=== PATIENT | female | born 1985 | race Caucasian/White ===

== ENCOUNTER → 2022-04-03 | Emergency (ER) | payer OTHER | END | disposition home or self-care (01) | LOC: ER 17:21 | DX: S41.112A Laceration without foreign body of left upper arm, initial encounter (principal); S81.811A Laceration without foreign body, right lower leg, initial encounter; W55.01XA Bitten by cat, initial encounter; Y93.9 Activity, unspecified; Y92.019 Unspecified place in single-family (private) house as the place of occurrence of the external cause; Y99.9 Unspecified external cause status ==

== ENCOUNTER 2022-04-11 12:23 | Emergency (ER) | payer OTHER ==
[~2022-04-11] VITALS: Ht 157.5 cm; Wt 95.3 kg
[2022-04-11] MEDS ORDERED: LEVO-T25 MCG PO (12:50)
[2022-04-11] MEDS ORDERED: FLAGYL375 MG (12:51)
== END 2022-04-11 14:53 | disposition home or self-care (01) ==
LOC: ER 12:23
DX: S50.872A Other superficial bite of left forearm, initial encounter (principal); S80.871A Other superficial bite, right lower leg, initial encounter; W55.01XA Bitten by cat, initial encounter; Y93.9 Activity, unspecified; Y92.9 Unspecified place or not applicable; Y99.9 Unspecified external cause status

== ENCOUNTER 2025-05-03 18:51 | Emergency (ER) | payer OTHER ==
[~2025-05-03] VITALS: Ht 157.5 cm; Wt 97.5 kg
[~2025-05-03 18:51] MED LIST: FLAGYL375 MG; LEVO-T25 MCG PO; LEVOTHYROXINE25 MCG PO
[2025-05-03 19:22] VITALS: BP 146/83; O2SAT 99
== END 2025-05-04 01:56 | disposition home or self-care (01) ==
LOC: ER 18:51 → EDBD 18:51 → ER 19:14
DX: R42 Dizziness and giddiness (principal); R51.9 Headache, unspecified

== ENCOUNTER 2025-07-27 20:10 | Emergency (ER) | payer OTHER ==
[~2025-07-27] VITALS: Ht 160 cm; Wt 97.5 kg
[2025-07-27] MEDS ORDERED: KETOROLAC TROMETHAMINE 30 MG VIAL IM STA (21:11)
[2025-07-27] MEDS ORDERED: CEFTRIAXONE SODIUM 1,000 MG VIAL IM STA (21:11)
[2025-07-27] MEDS ORDERED: DIPHTH,PERTUSS(ACELL),TET VAC 0.5 ML SYRINGE IM STA (21:14)
[2025-07-27] MEDS ORDERED: AMOX-CLAV 875-1 EACH PO (21:39)
[2025-07-27] MEDS ORDERED: DICLOFENAC POTA50 MG PO (21:39)
[2025-07-27] MEDS ORDERED: INTESTINEX680 M1 PO (21:39)
[2025-07-27] MEDS ORDERED: CEFTRIAXONE SODIUM 1,000 MG VIAL ONE (21:53)
[2025-07-27] MEDS ORDERED: DIPHTH,PERTUSS(ACELL),TET VAC 0.5 ML SYRINGE IM ONE (21:53)
[2025-07-27] MEDS ORDERED: KETOROLAC TROMETHAMINE 30 MG VIAL ONE (21:53)
== END 2025-07-27 22:57 | disposition home or self-care (01) ==
LOC: ER 20:11
DX: S49.82XA Other specified injuries of left shoulder and upper arm, initial encounter (principal); S89.82XA Other specified injuries of left lower leg, initial encounter; X58.XXXA Exposure to other specified factors, initial encounter; Y93.89 Activity, other specified; Y92.098 Other place in other non-institutional residence as the place of occurrence of the external cause; Y99.8 Other external cause status
CPT/HCPCS: 90471; 90714; J1670